=== PATIENT | female | born 1995 | race Caucasian/White ===

== ENCOUNTER 2018-09-25 18:47 | Emergency (ER) | payer OTHER ==
[~2018-09-25] VITALS: Ht 160 cm; Wt 56.2 kg
== END 2018-09-25 21:58 | disposition home or self-care (01) ==
LOC: ER 18:47
DX: O26.892 Other specified pregnancy related conditions, second trimester (principal); R10.2 Pelvic and perineal pain; Z34.02 Encounter for supervision of normal first pregnancy, second trimester

== ENCOUNTER 2018-12-02 14:42 | Outpatient (CLI) | payer OTHER | END 2018-12-03 11:06 | disposition home or self-care (01) | LOC: OBS/DEL 14:42 | DX: O23.42 Unspecified infection of urinary tract in pregnancy, second trimester (principal); O99.012 Anemia complicating pregnancy, second trimester; D64.89 Other specified anemias; Z34.02 Encounter for supervision of normal first pregnancy, second trimester ==

== ENCOUNTER 2019-03-20 05:14 | Inpatient (IN) | payer OTHER ==
[~2019-03-20] VITALS: Ht 160 cm; Wt 66.7 kg
== END 2019-03-22 14:27 | DRG 807 ==
LOC: LDR 05:14 → OB/GYN 05:14
PROVIDERS: ADMIT Obstetrics & Gynecology
PROC: 10E0XZZ Delivery of Products of Conception, External Approach (ICD-10-PCS; principal; 2019-03-20)
PROC: 0KQM0ZZ Repair Perineum Muscle, Open Approach (ICD-10-PCS; 2019-03-20)
PROC: 4A0HXFZ Measurement of Products of Conception, Cardiac Rhythm, External Approach (ICD-10-PCS; 2019-03-20)
DX: O70.1 Second degree perineal laceration during delivery (principal); Z37.0 Single live birth; O99.820 Streptococcus B carrier state complicating pregnancy; O99.013 Anemia complicating pregnancy, third trimester; Z3A.39 39 weeks gestation of pregnancy